=== PATIENT | male | born 1955 | race Caucasian/White ===

== ENCOUNTER → 2017-09-25 | Outpatient (CLI) | payer OTHER ==
[~2017-09-25] MED LIST: ASPI-1471 PO; ATOR10TA24 PO; DAPA5TAB; DILT240C76 PO; EZET10TA41 PO; FEBU40TA2 PO; FEXO180T74 PO; FISH OIL 1,2001 CAP PO; GLIP-152 PO; GUAI1200 PO; GUAI600T48 PO; LIS20 PO; METF-420 PO; MULT-1287 PO; OMEP-125 PO; PIOG45TA22 PO; SITA100T PO; SULF-198 PO; [UNRECOGNIZED DRUG - CODE] PO
--- NOTE | 2017-09-26 16:40 | RADIOLOGY IMAGING REPORT ---
FACILITY: [facility] [place] PATIENT NAME: MICHELLE MEDEL : [id number] MR: [id number] V: [id number] EXAM DATE: ORDERING PHYSICIAN: BLANE DYER TECHNOLOGIST: Richa Salguero EXAMINATION:TWO-DIMENSIONAL ECHOCARDIOGRAPH REASON:PULMONARY HYPERTENSION 2D Measurements (normal values in centimeters) LV endLV endRV endVent.LV PostAorticLeftPercent DiastolicSystolicDiastolicSeptumWallRootAtriumShortening (3.5-5.7)(0.9-2.6)(0.6-1.1)(0.6-1.1)(2.0-3.7)(1.9-4.0)(25-35%) [id number]% STROKE VOLUME: 80mL ESTIMATED EJECTION FRACTION: 67% PARASTERNAL LONG AXIS: View is very techniquely difficult definite contrast was used. No wall motion abnormalities were noted. Color examination of the valves reveal only a trace of mitral insufficiency in this view. There is mild concentric left ventricular thickening present. Right ventricle is moderately enlarged, right atrium is normal in size. Left atrium is mild to borderline to moderately enlarged. PARASTERNAL SHORT AXIS: Again difficulty with the examination. The views were not very good but there is some flattening along the inner ventricular septum. The aortic valve is trileaflet in configuration with some aortic sclerosis. Color examination of the valves was unremarkable in this view. APICAL FOUR AND TWO CHAMBER: Normal left ventricular function is again noted. Aortic valve area and mitral valve area both measure within normal ranges at 4.2 and 4.9cm/2 respectively. The left atrial volume is mildly increased at 33ml mild to borderline moderately increased at 33ml/mt2. Right atrial volume is measured within normal ranges at 19ml/mt2. Right ventricular appears to contract normally and the TAPSE was measured at 2.9. Tricuspid Vmax measured at 4.3mt/2. There is only a trace tricuspid insufficiency noted. SUBCOSTAL VIEW: No pericardial effusion was noted. No atrioseptal or ventriculoseptal defects were noted. Doppler examination of the mitral valve in diastole does reveal the A wave>E wave. The IVCis normal in size. OVERALL IMPRESSION: 1. Somewhat techniquely difficult Two-Dimensional Echocardiograph but definity contrast was used. 2. The overall left ventricular ejection fraction measured within normal ranges at 67%. There is a mild decrease in diastolic function. 3. Mild concentric left ventricular thickening but no evidence for any outflow tract obstruction. 4. Moderate right ventricular enlargement and mild to borderline moderate left atrial enlargement. The other chamber sizes are normal. 5. Mild dilatation of the aortic root. 6. A trileaflet aortic valve with mild aortic sclerosis. No other abnormalities were noted. 7. A trace of mitral and moderate tricuspid insufficiency the estimated right ventricular systolic pressure is measured at 80 to 85mm Hg with an estimated right atrial pressure of 38mm Hg. This indicates severe pulmonary hypertension and increase right ventricular systolic pressures. 8. In comparison to the examination done on 11/03/13 the right ventricular pressures are approximately the same. The tricuspid insufficiency has gotten slightly larger. Dictated by: Manjinder Acosta M.D. on 09/25/2017 at 17:44 Transcribed by: SEGUNDO on 09/26/2017 at 11:17 Approved by: Manjinder Acosta M.D. on 09/26/2017 at 16:39 [facility]
== END ==
LOC: US 01:09
PROVIDERS: ATTEND Internal Medicine
DX: I50.30 Unspecified diastolic (congestive) heart failure (principal); I51.7 Cardiomegaly; I25.10 Atherosclerotic heart disease of native coronary artery without angina pectoris; I34.0 Nonrheumatic mitral (valve) insufficiency; I07.1 Rheumatic tricuspid insufficiency; I27.20 Pulmonary hypertension, unspecified
CPT/HCPCS: 93306

== ENCOUNTER 2018-07-24 11:39 | Emergency (ER) | payer OTHER ==
[~2018-07-24 11:39] MED LIST changes: -METF-420 PO; +METF-452 PO
--- NOTE | 2018-07-24 11:43 | ER Report ---
History and Physical Time Seen By MD: 11:41 HPI/ROS CHIEF COMPLAINT: pain on right side of face, right facial weakness. HISTORY OF PRESENT ILLNESS: This is a 62 year old male. He started having some weakness in his right face yesterday about 1330 hours. Noted when he was drinking some coffee that was leaking out of the right side of his mouth. Noted watering of his right eye, could not close completely. A few days prior to this had some right sided neck pain, near the jaw. This still aches behind the ear and down by the jaw. No trouble with swallow or speech at this time. He denies weakness of the arms and legs. No numbness in the arms and legs. No fevers or chills. No headache. Normal vision. No skin rashes, other than some punctures on skin from new kitten that they have. No chest pain or shortness of breath. Allergies: Coded Allergies: codeine (Verified Allergy, Mild, SENSITIVITY, 12/26/15) insulin detemir (Verified Allergy, Unknown, 07/24/18) insulin glargine (Verified Allergy, Unknown, 07/24/18) Uncoded Allergies: DOGS (Allergy, Mild, 09/30/06) DUST (Allergy, Mild, 09/30/06) POLLEN EXTRACTS (Allergy, Mild, UNKNOWN, 10/03/11) WEEDS (Allergy, Mild, 09/30/06) CAT'S CLAW (Allergy, Unknown, 02/18/15) Home Meds Active Scripts Prednisone (PREDNISONE) 20 Mg Tablet, 60 MG PO QDAY for 7 Days, #21 TAB 0 Refills Prov:RAPHAEL SEARS MD 07/24/18 Valacyclovir Hcl (VALACYCLOVIR) 1,000 Mg Tablet, 1000 MG PO TID for 7 Days, #21 TAB 0 Refills Prov:RAPHAEL SEARS MD 07/24/18 Reported Medications Escitalopram Oxalate (LEXAPRO) 20 Mg Tablet, 15 MG PO QDAY, TAB 07/24/18 Insulin Aspart (NOVOLOG) 100 Unit/Ml Soln, 100 UNIT SUBQ 07/24/18 Insulin Degludec (Tresiba Flextouch U-100) 100 Unit/Ml (3 Ml) Insuln.pen 07/24/18 Diltiazem Hcl (DILTIAZEM ER) 360 Mg Capsule.er, 360 MG PO 07/24/18 Lisinopril (LISINOPRIL) 40 Mg Tablet, 40 MG PO QDAY, TAB 07/24/18 Dapagliflozin Propanediol (Farxiga) 5 Mg Tablet, QDAY 02/19/15 Fexofenadine Hcl (ALLER-EASE) 180 Mg Tablet, 180 MG PO QDAY, TAB 02/18/15 Multivitamin (MEN'S MULTI-VITAMIN) 1 Each Tablet, 1 EACH PO DAILY 02/18/15 Guaifenesin (MUCINEX) 1,200 Mg Tbmp.12hr, 1200 MG PO BID 12/07/13 Metformin Hcl (METFORMIN HCL) 1,000 Mg Tablet, 1 TAB PO BID TAKE ONE TABLET BY MOUTH TWO TIMES A DAY 12/07/13 Febuxostat (ULORIC) 40 Mg Tablet, 40 MG PO DAILY 12/07/13 Ezetimibe (ZETIA) 10 Mg Tablet, 10 MG PO QDAY 12/07/13 Omeprazole (OMEPRAZOLE) 20 Mg Capsule.dr, 1 CAP PO QDAY TAKE ONE CAPSULE BY MOUTH ONCE A DAY 12/07/13 Aspirin (Aspir 81) 81 Mg Tablet.dr, 81 MG PO DAILY 10/29/08 Atorvastatin (Lipitor) 10 Mg Tablet, 20 MG PO QHS 10/29/08 Discontinued Reported Medications Diltiazem Hcl (DILTIAZEM 24HR ER) 240 Mg Cap.er.24h, 240 MG PO DAILY 02/18/15 Glipizide (GLIPIZIDE) 5 Mg Tablet, 5 MG PO BID 12/07/13 Pioglitazone Hcl (ACTOS) 45 Mg Tablet, 45 MG PO QDAY 12/07/13 Sitagliptin Phosphate (JANUVIA) 100 Mg Tablet, 100 MG PO QDAY 12/07/13 Lisinopril (Prinivil) 20 Mg Tab, 20 MG PO QDAY 10/29/08 Discontinued Scripts Sulfamethoxazole/Trimet 800-160 Mg Tab (BACTRIM DS TABLET) 1 Each Tablet, 2 TAB PO Q12H, #40 Prov:DIOR NESS DO 02/21/15 Reviewed Nurses Notes: Yes Hx Smoking: No Smoking Status: Never Smoker Hx Substance Use Disorder: No Hx Alcohol Use: No Constitutional Vital Sign - Last 24 Hours 07/24/18 07/24/18 07/24/18 07/24/18 11:39 11:44 11:45 11:53 Temp 98.6 Pulse ??? 82 Resp 18 B/P (MAP) 155/87 (109) 155/87 127/74 (91) Pulse Ox 90 O2 Delivery Room Air 07/24/18 07/24/18 07/24/18 07/24/18 11:54 12:00 12:09 12:20 Pulse ??? 74 Resp 21 18 B/P (MAP) ???/??? (9375) 121/68 (85) Pulse Ox 92 92 07/24/18 07/24/18 07/24/18 07/24/18 12:24 12:30 12:39 12:40 Pulse 78 77 Resp 25 21 B/P (MAP) 124/70 (88) Pulse Ox 91 90 O2 Flow Rate 4.0 07/24/18 07/24/18 07/24/18 07/24/18 12:54 13:00 13:24 13:29 Pulse 86 75 76 Resp 12 ??? B/P (MAP) ???/??? (5395) Pulse Ox 88 92 89 07/24/18 07/24/18 07/24/18 07/24/18 13:44 13:59 14:00 14:03 Pulse ? 70 Resp ??? B/P (MAP) ???/??? (5480) Pulse Ox ??? 95 O2 Delivery Room Air 07/24/18 07/24/18 07/24/18 07/24/18 14:14 14:20 14:26 14:29 Pulse ??? 69 Resp 35 B/P (MAP) ???/??? (6127) 130/74 (92) Pulse Ox 93 07/24/18 07/24/18 07/24/18 07/24/18 14:40 14:44 14:59 15:00 Pulse 67 90 Resp 40 19 B/P (MAP) 123/64 (83) 121/62 (81) Pulse Ox 92 87 07/24/18 07/24/18 15:14 15:20 Pulse 76 Resp 21 B/P (MAP) 113/53 (73) Pulse Ox 86 Physical Exam General Appearance: The patient is alert. No acute distress. Eyes: Pupils are equal, round. No pallor, injection or icterus. Extraocular movement are intact. Pupils reactive to light. No nystagmus. ENT: Mucous membranes are moist. Normal oral mucosa. Posterior oropharynx is normal. Has no lymphadenopathy. Neck: Supple and non tender. Respiratory: Lungs are clear to auscultation. Cardiovascular: Regular rate and rhythm. No murmurs, gallops or rubs. Normal capillary refill. Gastrointestinal: Abdomen is soft and non tender. Nondistended. Normal active bowel sounds. Neurological: Alert and oriented x3. Cranial nerves with eyes as noted above. Facial droop on the right. Midline tongue and symmetric palate elevation. Normal facial sensation. Normal shoulder shrug. No focal neurologic deficits in the extremities. Normal finger to nose and heel to mace. Skin: Warm and dry. Has diffuse small punctures on abdomen and chest from new kitten. No sign of infection. Musculoskeletal: Extremities are nontender. No tenderness in palpation of the cervical, thoracic and lumbar spine. DIFFERENTIAL DIAGNOSIS: After history and physical exam, differential diagnosis was considered for weakness in the face on the right side symptoms appear likely Joy's palsy. Need to rule out stroke and TIA Medical Decision Making Data Points Result Diagram: 07/24/18 1153 07/24/18 1153 Laboratory Hematology Test 07/24/18 11:53 Red Blood Count 5.11 M/uL (4.00-5.60) Mean Corpuscular Volume 85.8 fL (80.0-96.0) Mean Corpuscular Hemoglobin 27.7 pg (26.0-33.0) Mean Corpuscular Hemoglobin Concent 32.3 g/dL (32.0-36.0) Red Cell Distribution Width 16.9 % (11.5-14.5) Mean Platelet Volume 8.5 fL (7.2-11.1) Neutrophils (%) (Auto) 70.5 % (39.4-72.5) Lymphocytes (%) (Auto) 14.3 % (17.6-49.6) Monocytes (%) (Auto) 12.2 % (4.1-12.4) Eosinophils (%) (Auto) 2.5 % (0.4-6.7) Basophils (%) (Auto) 0.5 % (0.3-1.4) Nucleated RBC Relative Count (auto) 0.0 /100WBC Neutrophils # (Auto) 6.0 K/uL (2.0-7.4) Lymphocytes # (Auto) 1.2 K/uL (1.3-3.6) Monocytes # (Auto) 1.0 K/uL (0.3-1.0) Eosinophils # (Auto) 0.2 K/uL (0.0-0.5) Basophils # (Auto) 0.0 K/uL (0.0-0.1) Nucleated RBC Absolute Count (auto) 0.00 K/uL Prothrombin Time 12.0 seconds (12.0-14.4) Prothromb Time International Ratio 0.89 Activated Partial Thromboplast Time 25 seconds (23-35) Sodium Level 138 mmol/L (137-145) Potassium Level 4.2 mmol/L (3.5-5.0) Chloride Level 100 mmol/L (98-107) Carbon Dioxide Level 29 mmol/L (22-30) Blood Urea Nitrogen 14 mg/dl (9-21) Creatinine 0.70 mg/dl (0.66-1.25) Glomerular Filtration Rate Calc > 60.0 Random Glucose 151 mg/dl (75-110) Calcium Level 9.7 mg/dl (8.4-10.2) Total Bilirubin 1.3 mg/dl (0.2-1.3) Aspartate Amino Transf (AST/SGOT) 26 U/L (0-35) Alanine Aminotransferase (ALT/SGPT) 27 U/L (0-56) Alkaline Phosphatase 95 U/L (0-126) Troponin I < 0.012 ng/ml Total Protein 8.0 g/dl (6.3-8.2) Albumin 4.2 g/dl (3.5-5.0) Chemistry Test 07/24/18 11:53 White Blood Count 8.5 k/uL (4.5-11.0) Red Blood Count 5.11 M/uL (4.00-5.60) Hemoglobin 14.2 g/dL (14.0-18.0) Hematocrit 43.9 % (42.0-52.0) Mean Corpuscular Volume 85.8 fL (80.0-96.0) Mean Corpuscular Hemoglobin 27.7 pg (26.0-33.0) Mean Corpuscular Hemoglobin Concent 32.3 g/dL (32.0-36.0) Red Cell Distribution Width 16.9 % (11.5-14.5) Platelet Count 261 K/uL (150-450) Mean Platelet Volume 8.5 fL (7.2-11.1) Neutrophils (%) (Auto) 70.5 % (39.4-72.5) Lymphocytes (%) (Auto) 14.3 % (17.6-49.6) Monocytes (%) (Auto) 12.2 % (4.1-12.4) Eosinophils (%) (Auto) 2.5 % (0.4-6.7) Basophils (%) (Auto) 0.5 % (0.3-1.4) Nucleated RBC Relative Count (auto) 0.0 /100WBC Neutrophils # (Auto) 6.0 K/uL (2.0-7.4) Lymphocytes # (Auto) 1.2 K/uL (1.3-3.6) Monocytes # (Auto) 1.0 K/uL (0.3-1.0) Eosinophils # (Auto) 0.2 K/uL (0.0-0.5) Basophils # (Auto) 0.0 K/uL (0.0-0.1) Nucleated RBC Absolute Count (auto) 0.00 K/uL Prothrombin Time 12.0 seconds (12.0-14.4) Prothromb Time International Ratio 0.89 Activated Partial Thromboplast Time 25 seconds (23-35) Glomerular Filtration Rate Calc > 60.0 Calcium Level 9.7 mg/dl (8.4-10.2) Total Bilirubin 1.3 mg/dl (0.2-1.3) Aspartate Amino Transf (AST/SGOT) 26 U/L (0-35) Alanine Aminotransferase (ALT/SGPT) 27 U/L (0-56) Alkaline Phosphatase 95 U/L (0-126) Troponin I < 0.012 ng/ml Total Protein 8.0 g/dl (6.3-8.2) Albumin 4.2 g/dl (3.5-5.0) Coagulation Test 07/24/18 11:53 Prothrombin Time 12.0 seconds Prothromb Time International Ratio 0.89 Activated Partial Thromboplast Time 25 seconds EKG/Imaging EKG Interpretation 12 lead EKG: Rhythm: Normal sinus rhythm, rate 74 [place]: normal QRS: normal ST segments: normal Imaging EXAMINATION: CT head without IV contrast HISTORY: Stroke alert. Right facial droop. TECHNIQUE: Axial CT images of the head were obtained from the vertex to the skull base without IV contrast, with coronal and sagittal 2D reconstructed images. One of the following dose optimization techniques was utilized in the performance of this exam: Automated exposure control; adjustment of the mA and/or kV according to the patient's size; or use of an iterative reconstruction technique. Specific details can be referenced in the facility's radiology CT exam operational policy. COMPARISON: None. FINDINGS: There is mild age-appropriate parenchymal volume loss, with mild patchy low attenuation in the deep white matter compatible with chronic small vessel ischemic change. Intracranial vascular calcifications. No CT evidence of intracranial hemorrhage, mass lesion, or acute infarct. No midline shift or extra-axial fluid collections. Garcia-white differentiation is maintained. The calvarium is intact. The partially visualized paranasal sinuses and mastoid air cells are unopacified. IMPRESSION: 1. No CT evidence of acute intracranial pathology. 2. Mild chronic age-related changes. Findings were discussed with RAPHAEL SEARS at 07/24/2018 12:17 PM. Report Dictated By: Derek Wang MD at 07/24/2018 12:14 PM Exam type: CHEST SINGLE AP History: facial droop Comparison: August 15, 2016. Findings: Chronic peribronchial thickening and linear stranding at lung bases appears relatively unchanged. Prominence of central pulmonary arteries again seen. The cardiac silhouette is normal in size. EKG leads project over the thorax IMPRESSION: 1. Comment Bronchial thickening and linear stranding in the lung bases appears relatively unchanged. Prominence of the central pulmonary arteries may be related to pulmonary arterial hypertension Report Dictated By: Carmen Fleming MD at 07/24/2018 1:13 PM EXAMINATION: MRI Brain without intravenous contrast MRI Brain with intravenous contrast HISTORY: Right facial droop. COMPARISON: Noncontrast head CT from same date. TECHNIQUE: Multi-planar, multi-sequence brain MRI was performed before and after IV gadolinium. CONTRAST: 15 mL of IV MultiHance FINDINGS: Brain volume: Normal. Sagittal midline structures: Negative. Ventricles: Negative. Acute ischemic changes: None. Hemorrhage: None. Masses / edema: None. Enhancement: Negative. Garcia-white: Negative. White matter: A few T2/FLAIR hyperintensities in the deep white matter bilaterally. Vessels: Negative. Extra-axial: Negative. Calvarium / scalp: Negative. Skull base: Negative. Visualized sinuses / orbits: Leftward nasal septal deviation. Mild mucosal thickening in the maxillary sinuses. Small polyp or cyst in the left maxillary sinus. Visualized upper neck: Negative. IMPRESSION: 1. No acute intracranial abnormality. 2. Mild chronic white matter disease is nonspecific but most likely represents chronic small vessel ischemia. Report Dictated By: Gavin Lemos MD at 07/24/2018 2:55 PM ED Course/Re-evaluation Clinical Indication for ER IV: Hydration, IV Access ED Course Neurology evaluation was done with Telestroke robot after the head CT obtained. Exam shows that this is likely [place] Palsy and not a stroke. MRI obtained. Used Ketamine at a subsedative dose to help with anxiety in the MRI unit which worked well. Started on Valacyclovir and Prednisone once the MRI results were available showing no acute stroke or other neurodegenerative process. Recommended follow- up with Neurology for further outpatient evaluation. Decision to Disposition Date: Jul 24, 2018 Decision to Disposition Time: 15:40 Depart Departure Latest Vital Signs Vital Signs Date Time Temp Pulse Resp B/P (MAP) Pulse Ox O2 Delivery O2 Flow Rate FiO2 07/24/18 15:20 113/53 (73) 07/24/18 15:14 76 21 86 07/24/18 14:03 Room Air 07/24/18 12:30 4.0 07/24/18 11:45 98.6 Impression: Primary Impression: Joy's palsy Condition: Condition Unchanged Disposition: HOME OR SELF-CARE Referrals: JOSE ALEJANDRO RICHARDSON DO (PCP) New Scripts Prednisone (PREDNISONE) 20 Mg Tablet 60 MG PO QDAY for 7 Days, #21 TAB 0 Refills Prov: RAPHAEL SEARS MD 07/24/18 Valacyclovir Hcl (VALACYCLOVIR) 1,000 Mg Tablet 1000 MG PO TID for 7 Days, #21 TAB 0 Refills Prov: RAPHAEL SEARS MD 07/24/18 Patient Instructions: Joy Palsy (ED) Additional Instructions: Take Prednisone 20mg tablets, 3 tablets once a day for 7 days. Take Valacyclovir 1000mg tablet, one table 3 times a day for 7 days. Wear an eye patch and use lubricating eye drops to help protect your right eye. Follow-up with Neurology, call to schedule an appointment. RAPHAEL SEARS MD Jul 24, 2018 11:43
[2018-07-24 12:05] LABS: PLATELET COUNT, AUTOMATED 261 K/uL (150-450)
[2018-07-24 12:10] LABS: INR 0.89
[2018-07-24] MEDS ORDERED: NOVOLOG SUBQ (12:15)
[2018-07-24] MEDS ORDERED: INSU100I8 (12:15)
[2018-07-24] MEDS ORDERED: DILT360C PO (12:15)
[2018-07-24] MEDS ORDERED: ESCI20TA38 PO (12:15)
[2018-07-24] MEDS ORDERED: LISI-374 PO (12:15)
--- NOTE | 2018-07-24 12:23 | RADIOLOGY IMAGING REPORT ---
FACILITY: [facility] - [place] PATIENT NAME: Kwabena Angel : 1955 MR: [id number] V: [id number] EXAM DATE: ORDERING PHYSICIAN: RAPHAEL SEARS TECHNOLOGIST: Location: [facility] [place] Patient: Kwabena Angel : 1955 Visit/Account:[id number] Date of Sevice: 07/24/2018 EXAMINATION: CT head without IV contrast HISTORY: Stroke alert. Right facial droop. TECHNIQUE: Axial CT images of the head were obtained from the vertex to the skull base without IV c ontrast, with coronal and sagittal 2D reconstructed images. One of the following dose optimization techniques was utilized in the performance of this exam: Autom ated exposure control; adjustment of the mA and/or kV according to the patient's size; or use of an i terative reconstruction technique. Specific details can be referenced in the facility's radiology C T exam operational policy. COMPARISON: None. FINDINGS: There is mild age-appropriate parenchymal volume loss, with mild patchy low attenuation in the deep w mitch matter compatible with chronic small vessel ischemic change. Intracranial vascular calcification s. No CT evidence of intracranial hemorrhage, mass lesion, or acute infarct. No midline shift or extra- axial fluid collections. Garcia-white differentiation is maintained. The calvarium is intact. The partially visualized paranasal sinuses and mastoid air cells are unopaci fied. IMPRESSION: 1. No CT evidence of acute intracranial pathology. 2. Mild chronic age-related changes. Findings were discussed with RAPHAEL SEARS at 07/24/2018 12:17 PM. Report Dictated By: Derek Wang MD at 07/24/2018 12:14 PM Report E-Signed By: Derek Wang MD at 07/24/2018 12:19 PM [id number]
--- NOTE | 2018-07-24 12:25 | EKG ---
FACILITY: [facility] PATIENT NAME: MICHELLE MEDEL : [id number] MR: [id number] V: [id number] EXAM DATE: ORDERING PHYSICIAN: RAPHAEL SEARS TECHNOLOGIST: HANNA Test Reason : FACIAL DROOP Blood Pressure : / mmHG Vent. Rate : 074 BPM Atrial Rate : 074 BPM P-R Int : 188 ms QRS Dur : 092 ms QT Int : 398 ms P-R-T Axes : 055 064 023 degrees QTc Int : 441 ms Sinus rhythm Nonspecific ST-T findings in anterior leads Abnormal ECG Relatively similar to previous EKGs Confirmed by ABILIO FROST ([id number]) on 07/24/2018 2:45:52 PM Referred By: RENU Confirmed By:ABILIO FROST
[2018-07-24] MEDS ORDERED: KETAMINE HCL-NS 50 MG/5 ML SYR IVP ONE (12:40)
--- NOTE | 2018-07-24 13:19 | RADIOLOGY IMAGING REPORT ---
FACILITY: [facility] - [place] PATIENT NAME: Kwabena Angel : 1955 MR: [id number] V: [id number] EXAM DATE: ORDERING PHYSICIAN: RAPHAEL SEARS TECHNOLOGIST: Location: [facility] Patient: Kwabena Angel : 1955 Visit/Account:[id number] Date of Sevice: 07/24/2018 Exam type: CHEST SINGLE AP History: facial droop Comparison: August 15, 2016. Findings: Chronic peribronchial thickening and linear stranding at lung bases appears relatively unchanged. Pr ominence of central pulmonary arteries again seen. The cardiac silhouette is normal in size. EKG le ads project over the thorax IMPRESSION: 1. Comment Bronchial thickening and linear stranding in the lung bases appears relatively unchanged. Prominence of the central pulmonary arteries may be related to pulmonary arterial hypertension Report Dictated By: Carmen Fleming MD at 07/24/2018 1:13 PM Report E-Signed By: Carmen Fleming MD at 07/24/2018 1:15 PM [id number]
[2018-07-24] MEDS ORDERED: GADOBENATE 529MG/1ML 15ML VIAL IVP ONE (13:35)
[2018-07-24] MEDS ORDERED: APAP/HYDROCODONE 325/5 TAB PO ONE (14:30)
[2018-07-24] MEDS ORDERED: ONDANSETRON 4 MG/2 ML VIAL IVP ONE (14:30)
--- NOTE | 2018-07-24 15:04 | RADIOLOGY IMAGING REPORT ---
FACILITY: [facility] PATIENT NAME: Kwabena Angel : 1955 MR: [id number] V: [id number] EXAM DATE: ORDERING PHYSICIAN: RAPHAEL SEARS TECHNOLOGIST: Location: [facility] Patient: Kwabena Angel : 1955 Visit/Account:[id number] Date of Sevice: 07/24/2018 EXAMINATION: MRI Brain without intravenous contrast MRI Brain with intravenous contrast HISTORY: Right facial droop. COMPARISON: Noncontrast head CT from same date. TECHNIQUE: Multi-planar, multi-sequence brain MRI was performed before and after IV gadolinium. CONTRAST: 15 mL of IV MultiHance FINDINGS: Brain volume: Normal. Sagittal midline structures: Negative. Ventricles: Negative. Acute ischemic changes: None. Hemorrhage: None. Masses / edema: None. Enhancement: Negative. Garcia-white: Negative. White matter: A few T2/FLAIR hyperintensities in the deep white matter bilaterally. Vessels: Negative. Extra-axial: Negative. Calvarium / scalp: Negative. Skull base: Negative. Visualized sinuses / orbits: Leftward nasal septal deviation. Mild mucosal thickening in the maxill francisca sinuses. Small polyp or cyst in the left maxillary sinus. Visualized upper neck: Negative. IMPRESSION: 1. No acute intracranial abnormality. 2. Mild chronic white matter disease is nonspecific but most likely represents chronic small vessel ischemia. Report Dictated By: Gavin Lemos MD at 07/24/2018 2:55 PM Report E-Signed By: Gavin Lemos MD at 07/24/2018 3:01 PM WSN:[id number]
[2018-07-24 15:20] VITALS: BP 113/53
[2018-07-24] MEDS ORDERED: PRED20TA6 PO (15:41)
[2018-07-24] MEDS ORDERED: VALA100059 PO (15:41)
== END 2018-07-24 15:57 | disposition home or self-care (01) ==
LOC: ER 11:49
DX: G51.0 Bell's palsy (principal)
CPT/HCPCS: 70450; 70553; 71045; 84484; 85025; 85610; 85730; 93005; 96374; 96375; 99285; A9577; J2405; J3490; 82040; 82247; 82310; 82374; 82435; 82565; 82947; 84075; 84132; 84155; 84295; 84450; 84460; 84520

== ENCOUNTER 2018-09-28 18:18 | Emergency (ER) | payer OTHER ==
[~2018-09-28 18:18] MED LIST changes: +DILT360C PO; +ESCI20TA38 PO; +INSU100I8; +LISI-374 PO; +NOVOLOG SUBQ; +PRED20TA6 PO; +VALA100059 PO
--- NOTE | 2018-09-28 19:18 | ER Report ---
History and Physical Time Seen By MD: 19:17 Hx. of Stated Complaint: pt fell down two steps in garage after tripping over 02 hosing. fell on left side, hit ribs on a tool box HPI/ROS CHIEF COMPLAINT: Left rib pain HISTORY OF PRESENT ILLNESS: 63-year-old male patient presents to emergency room with complaint of left rib pain. Patient states that he has been having this pain for the past 9 days. He states that that time he was going out into his garage when he tripped on his oxygen tubing and fell landing on a toolbox. Patient states since then he's been having intermittent pain, often times associated with spasms. He denies any shortness of breath. Denies any fevers, chills, nausea, vomiting or diarrhea. Patient states he didn't take ibuprofen for this with no improvement. Patient states he has been applying ice to the area with no improvement. states that he does have bruising with swelling on that side. REVIEW OF SYSTEMS: Respiratory: No cough, no dyspnea. Cardiovascular: No chest pain, no palpitations. Gastrointestinal: No vomiting, no abdominal pain. Musculoskeletal: As noted above Allergies: Coded Allergies: codeine (Verified Allergy, Mild, SENSITIVITY, 09/28/18) insulin detemir (Verified Allergy, Unknown, 09/28/18) insulin glargine (Verified Allergy, Unknown, 09/28/18) Uncoded Allergies: DOGS (Allergy, Mild, 09/30/06) DUST (Allergy, Mild, 09/30/06) POLLEN EXTRACTS (Allergy, Mild, UNKNOWN, 10/03/11) WEEDS (Allergy, Mild, 09/30/06) CAT'S CLAW (Allergy, Unknown, 02/18/15) Home Meds Active Scripts Hydrocodone Bit/Acetaminophen (HYDROCODON-ACETAMINOPHEN 5-325) 1 Each Tablet, 1 EACH PO Q4-6H PRN for PAIN, #8 TAB Prov:FERMÍN MARTINES 09/28/18 Cyclobenzaprine Hcl (CYCLOBENZAPRINE HCL) 10 Mg Tablet, 10 MG PO TID PRN for MUSCLE SPASMS, #15 TAB Prov:FERMÍN MARTINES 09/28/18 Prednisone (PREDNISONE) 20 Mg Tablet, 60 MG PO QDAY for 7 Days, #21 TAB 0 Refills Prov:RAPHAEL SEARS MD 07/24/18 Valacyclovir Hcl (VALACYCLOVIR) 1,000 Mg Tablet, 1000 MG PO TID for 7 Days, #21 TAB 0 Refills Prov:RAPHAEL SEARS MD 07/24/18 Reported Medications Escitalopram Oxalate (LEXAPRO) 20 Mg Tablet, 15 MG PO QDAY, TAB 07/24/18 Insulin Aspart (NOVOLOG) 100 Unit/Ml Soln, 100 UNIT SUBQ 07/24/18 Insulin Degludec (Tresiba Flextouch U-100) 100 Unit/Ml (3 Ml) Insuln.pen 07/24/18 Diltiazem Hcl (DILTIAZEM ER) 360 Mg Capsule.er, 360 MG PO 07/24/18 Lisinopril (LISINOPRIL) 40 Mg Tablet, 40 MG PO QDAY, TAB 07/24/18 Dapagliflozin Propanediol (Farxiga) 5 Mg Tablet, QDAY 02/19/15 Fexofenadine Hcl (ALLER-EASE) 180 Mg Tablet, 180 MG PO QDAY, TAB 02/18/15 Multivitamin (MEN'S MULTI-VITAMIN) 1 Each Tablet, 1 EACH PO DAILY 02/18/15 Guaifenesin (MUCINEX) 1,200 Mg Tbmp.12hr, 1200 MG PO BID 12/07/13 Metformin Hcl (METFORMIN HCL) 1,000 Mg Tablet, 1 TAB PO BID TAKE ONE TABLET BY MOUTH TWO TIMES A DAY 12/07/13 Febuxostat (ULORIC) 40 Mg Tablet, 40 MG PO DAILY 12/07/13 Ezetimibe (ZETIA) 10 Mg Tablet, 10 MG PO QDAY 12/07/13 Omeprazole (OMEPRAZOLE) 20 Mg Capsule.dr, 1 CAP PO QDAY TAKE ONE CAPSULE BY MOUTH ONCE A DAY 12/07/13 Aspirin (Aspir 81) 81 Mg Tablet.dr, 81 MG PO DAILY 10/29/08 Atorvastatin (Lipitor) 10 Mg Tablet, 20 MG PO QHS 10/29/08 Past Medical/Surgical History Patient has a past medical history of hypertension, hyperlipidemia, pneumonia, Joy's palsy, arthritis, type 2 diabetes. Patient has surgical history of umbilical hernia repair. Patient has a family medical history of diabetes. Reviewed Nurses Notes: Yes Hx Smoking: No Smoking Status: Never Smoker Hx Substance Use Disorder: No Hx Alcohol Use: No Constitutional Vital Sign - Last 24 Hours 09/28/18 09/28/18 18:48 18:57 Temp 98.1 Pulse 68 Resp 24 B/P (MAP) 127/69 Pulse Ox 88 O2 Delivery Nasal Cannula O2 Flow Rate 5.0 Physical Exam General Appearance: The patient is alert, has no immediate need for airway protection and no current signs of toxicity. Respiratory: Chest is tender along the left-sided ribs, lungs are clear to auscultation. Cardiac: regular rate and rhythm Gastrointestinal: Abdomen is soft and non tender, no masses, bowel sounds normal. Musculoskeletal: Neck: Neck is supple and non tender. Extremities have full range of motion and are non tender. Skin: No rashes or lesions. Patient has bruising along the posterior left side of the ribs. DIFFERENTIAL DIAGNOSIS: After history and physical exam differential diagnosis was considered for [ ] Medical Decision Making EKG/Imaging Imaging EXAMINATION: Chest radiographs 2 views HISTORY: Fall 9 days ago. Left rib pain. COMPARISON: 07/24/2018. FINDINGS: PA and lateral views of the chest are submitted. Lines/tubes: None. Lungs/pleura: Streaky opacities at the lung bases. No evidence of pneumothorax. No pleural effusion. Heart: Negative. Mediastinum: Negative. Bony structures/body wall: Small anterior osteophytes in the thoracic spine. IMPRESSION: Subsegmental atelectasis at the lung bases. No evidence of pneumothorax. Report Dictated By: Milton Henry MD at 09/28/2018 8:25 PM Report E-Signed By: Milton Henry MD at 09/28/2018 8:27 PM EXAMINATION: RIBS LEFT HISTORY: fall 9 days ago, persistent pain COMPARISON: Chest radiograph from 07/24/2018. FINDINGS: AP and oblique views of the left-sided ribs are obtained. Ribs/bones: No acute fracture is identified. Soft tissues: Negative. IMPRESSION: No evidence of acute left-sided rib fracture. Report Dictated By: Milton Henry MD at 09/28/2018 8:19 PM Report E-Signed By: Milton Henry MD at 09/28/2018 8:25 PM ED Course/Re-evaluation ED Course Patient was admitted on exam room, history and physical were obtained. Differential diagnoses were considered. I examination lungs are clear, heart is regular, abdomen is soft and nontender. Patient had tenderness to the left side of the ribs. He did have some bruising noted. X-rays done of the ribs as well as a chest x-ray. Those results were negative. Patient did receive a dose of hydrocodone while was here. He states he did have some improvement in his discomfort. I discussed the findings with the patient and his . We will go ahead and discharge him home at this time with a diagnosis of rib contusion. He is to limit activity by pain. He is to ice his wrist. He is follow-up with his primary care provider if symptoms persist. Patient will be prescribed a limited supply of pain medication as well as a muscle relaxer. I anticipate muscle relaxer will be thing that helps him the most. Patient verbalized understanding and agreement with plan. Decision to Disposition Date: Sep 28, 2018 Decision to Disposition Time: 20:37 Depart Departure Latest Vital Signs Vital Signs Date Time Temp Pulse Resp B/P (MAP) Pulse Ox O2 Delivery O2 Flow Rate FiO2 09/28/18 18:57 5.0 09/28/18 18:48 98.1 68 24 127/69 88 Nasal Cannula Impression: Primary Impression: Contusion of rib on left side Condition: Improved Disposition: HOME OR SELF-CARE Referrals: JOSE ALEJANDRO RICHARDSON DO (PCP) New Scripts Hydrocodone Bit/Acetaminophen (HYDROCODON-ACETAMINOPHEN 5-325) 1 Each Tablet 1 EACH PO Q4-6H PRN for PAIN, #8 TAB Prov: FERMÍN MARTINES 09/28/18 Cyclobenzaprine Hcl (CYCLOBENZAPRINE HCL) 10 Mg Tablet 10 MG PO TID PRN for MUSCLE SPASMS, #15 TAB Prov: FEMRÍN MARTINES 09/28/18 Patient Instructions: Rib Contusion (ED) Additional Instructions: Limit activity by pain. Ice the ribs 2-3 times a day for 10-15 minutes. Take Ibuprofen as needed for pain in addition to the pain medication. Follow up with your primary care provider in the next week. Return to the ER if condition worsens. Problem Qualifiers Primary Impression: Contusion of rib on left side Encounter type: initial encounter Qualified Codes: S20.212A - Contusion of left front wall of thorax, initial encounter FERMÍN AMRTINES Sep 28, 2018 19:18
[2018-09-28] MEDS ORDERED: APAP/HYDROCODONE 325/5 TAB PO ONE (19:25)
--- NOTE | 2018-09-28 20:29 | RADIOLOGY IMAGING REPORT ---
FACILITY: [facility] PATIENT NAME: Kwabena Angel : 1955 MR: [id number] V: [id number] EXAM DATE: ORDERING PHYSICIAN: FERMÍN MARTINES TECHNOLOGIST: Location: [facility] Patient: Kwabena Angel : 1955 Visit/Account:[id number] Date of Sevice: 09/28/2018 EXAMINATION: RIBS LEFT HISTORY: fall 9 days ago, persistent pain COMPARISON: Chest radiograph from 07/24/2018. FINDINGS: AP and oblique views of the left-sided ribs are obtained. Ribs/bones: No acute fracture is identified. Soft tissues: Negative. IMPRESSION: No evidence of acute left-sided rib fracture. Report Dictated By: Milton Henry MD at 09/28/2018 8:19 PM Report E-Signed By: Milton Henry MD at 09/28/2018 8:25 PM WSN:[id number]
--- NOTE | 2018-09-28 20:31 | RADIOLOGY IMAGING REPORT ---
FACILITY: [facility] [place] PATIENT NAME: Kwabena Angel : 1955 MR: [id number] V: [id number] EXAM DATE: ORDERING PHYSICIAN: FERMÍN MARTINES TECHNOLOGIST: Location: [facility] [place] Patient: Kwabena Angel : 1955 Visit/Account:[id number] Date of Sevice: 09/28/2018 EXAMINATION: Chest radiographs 2 views HISTORY: Fall 9 days ago. Left rib pain. COMPARISON: 07/24/2018. FINDINGS: PA and lateral views of the chest are submitted. Lines/tubes: None. Lungs/pleura: Streaky opacities at the lung bases. No evidence of pneumothorax. No pleural effusion. Heart: Negative. Mediastinum: Negative. Bony structures/body wall: Small anterior osteophytes in the thoracic spine. IMPRESSION: Subsegmental atelectasis at the lung bases. No evidence of pneumothorax. Report Dictated By: Milton Henry MD at 09/28/2018 8:25 PM Report E-Signed By: Milton Henry MD at 09/28/2018 8:27 PM WSN:[id number]
[2018-09-28] MEDS ORDERED: CYCL10TA29 PO (20:34)
[2018-09-28] MEDS ORDERED: HYDR-385 PO (20:34)
[2018-09-28] MEDS ORDERED: CYCLOBENZAPRINE HCL 10 MG TH PO ONE (20:40)
[2018-09-28] MEDS ORDERED: ACET/HYDROC 5/325MG TH ER ONLY 2 TAB/BOTTLE PO ONE (20:40)
[2018-09-28 20:47] VITALS: BP 120/65
== END 2018-09-28 20:47 | disposition home or self-care (01) ==
LOC: ER 18:45
DX: S20.212A Contusion of left front wall of thorax, initial encounter (principal)
CPT/HCPCS: 71046; 71100; 99284